=== PATIENT | female | born 1935 | race Caucasian/White ===

== ENCOUNTER 2017-11-14 19:12 | Emergency (ER) | payer MEDICARE ==
[2017-11-14] MEDS ORDERED: HYDRALAZINE HCL 20 MG/ML VIAL ONE (19:45)
[2017-11-14] MEDS ORDERED: HYDROCHLOROTHIAZIDE 25 MG TABLET ONE (19:46)
[2017-11-14 19:54] LABS: BASOPHILS % (AUTO) 1.3 % (0.0-5.0); EOSINOPHILS % (AUTO) 11.4 % (0.0-8.0); HEMATOCRIT 36.7 % (36-48); LYMPHOCYTES % (AUTO) 26.5 % (21.0-51.0); MEAN CORPUSCULAR HEMOGLOBIN 31.6 pg (27.0-33.0); MEAN CORPUSCULAR HGB CONC 33.6 g/dL (32.0-36.0); MONOCYTES % (AUTO) 13.3 % (3.0-13.0); NEUTROPHILS % (AUTO) 47.5 % (40.0-77.0); NUCLEATED RED BLOOD CELLS 0.1 % (0.0-0.19); PLATELET COUNT (AUTO) 301 K/uL (130-400); RED CELL DISTRIBUTION WIDTH 13.4 % (11.0-15.5); WHITE BLOOD COUNT (AUTO) 8.3 K/uL (4.8-10.8)
[2017-11-14 20:02] LABS: POTASSIUM 4.1 mmol/L (3.5-5.1)
[2017-11-14 20:07] LABS: ALBUMIN 3.6 g/dL (3.5-5.0); BILIRUBIN,TOTAL 0.4 mg/dL (0.2-1.0); TOTAL PROTEIN, SERUM 7.2 g/dL (6.0-8.3)
== END 2017-11-14 20:30 | disposition home or self-care (01) ==
LOC: EDH 19:12
DX: I10 Essential (primary) hypertension (principal); M19.90 Unspecified osteoarthritis, unspecified site; R00.1 Bradycardia, unspecified; Z88.2 Allergy status to sulfonamides; Z88.8 Allergy status to other drugs, medicaments and biological substances
CPT/HCPCS: 36415; 80053; 85025; 93005; 99285; J0360

== ENCOUNTER → 2017-11-23 | Outpatient (CLI) | payer MEDICARE | END | disposition home or self-care (01) | LOC: SHCH 15:52 | PROVIDERS: ATTEND Internal Medicine Cardiovascular Disease | DX: I10 Essential (primary) hypertension (principal); R00.1 Bradycardia, unspecified | CPT/HCPCS: 93306 ==

== ENCOUNTER → 2017-11-25 | Outpatient (CLI) | payer MEDICARE ==
[~2017-11-25] MED LIST: REGADENOSON 0.4 MG/5 ML PF SYG IVP SCH
== END | disposition home or self-care (01) ==
LOC: SHCH 08:42
PROVIDERS: ATTEND Internal Medicine Cardiovascular Disease
DX: Z01.818 Encounter for other preprocedural examination (principal); I10 Essential (primary) hypertension; R06.00 Dyspnea, unspecified; R55 Syncope and collapse
CPT/HCPCS: 78452; 93017; 96374; A9500 ×2; J2785

== ENCOUNTER 2018-04-21 05:38 | Day surgery (SDC) | payer MEDICARE ==
[2018-04-19 12:31] LABS: EOSINOPHILS % (AUTO) 4.2 % (0.0-8.0); HEMATOCRIT 39.7 % (36-48); LYMPHOCYTES % (AUTO) 17.5 % (21.0-51.0); MEAN CORPUSCULAR HGB CONC 33.2 g/dL (32.0-36.0); MEAN CORPUSCULAR VOLUME 90.4 fL (79-99); MONOCYTES % (AUTO) 9.3 % (3.0-13.0); PLATELET COUNT (AUTO) 318 K/uL (130-400); RED BLOOD CELL COUNT(AUTO) 4.39 MIL/uL (4.00-5.50); RED CELL DISTRIBUTION WIDTH 15.8 % (11.0-15.5); WHITE BLOOD COUNT (AUTO) 10.9 K/uL (4.8-10.8)
[2018-04-19 12:41] LABS: CREATININE 1.1 mg/dL (0.5-1.5); POTASSIUM 3.5 mmol/L (3.5-5.1)
[2018-04-19 12:46] LABS: INR 1.02 (0.85-1.15); PARTIAL THROMBOPLASTIN TIME 28.2 SEC (26.3-35.5); PROTHROMBIN TIME 10.7 SEC (9.6-11.6)
[2018-04-19 13:26] VITALS: BP 170/76
[2018-04-21] VITALS (10 sets, daily range): BP systolic 134–179; BP diastolic 66–83
[~2018-04-21] VITALS: Ht 165.1 cm; Wt 57.9 kg
[~2018-04-21 05:38] MED LIST changes: +ASPI-555 PO; +CELE200 PO; +CETI-101 PO; +CLON-465 PO; +HYDR25TA PO; +IRON150C5 PO; +LEVO75TA10 PO; +LOSA100T20 PO; +MONT10TA24 PO; -REGADENOSON 0.4 MG/5 ML PF SYG IVP SCH; +SIMV20TA6 PO; +TRIA10.8 NS; +TYL3 PO; +TYLENOL ER PO; +[UNRECOGNIZED DRUG - OTHER]
[2018-04-21] MEDS ORDERED: SODIUM CHLORIDE 0.9% 1000ML 1,000 ML IV ONE (06:17)
[2018-04-21] MEDS ORDERED: LIDOCAINE HCL 1% MDV 50ML VIAL ONE (08:04)
[2018-04-21] MEDS ORDERED: CEFAZOLIN SODIUM 1 GM VIAL ONE (08:04)
[2018-04-21] MEDS ORDERED: BUPIVACAINE/PF 0.25% 50ML VIAL IJ ONE (08:04)
[2018-04-21] MEDS ORDERED: FENTANYL CITRATE PF 50 MCG/1 ML 2ML VIAL ONE (08:47)
[2018-04-21] MEDS ORDERED: ACETAMINOPHEN 325 MG TAB PO PRN ×2 (09:15)
[2018-04-21] MEDS ORDERED: CEPH250 PO (09:45)
== END 2018-04-21 12:25 | disposition home or self-care (01) ==
LOC: DAH 05:38
PROVIDERS: ATTEND Internal Medicine Cardiovascular Disease
DX: Z45.09 Encounter for adjustment and management of other cardiac device (principal); E11.9 Type 2 diabetes mellitus without complications; I10 Essential (primary) hypertension; E78.5 Hyperlipidemia, unspecified; E03.9 Hypothyroidism, unspecified; Z98.890 Other specified postprocedural states; Z90.710 Acquired absence of both cervix and uterus; Z79.899 Other long term (current) drug therapy; Z82.49 Family history of ischemic heart disease and other diseases of the circulatory system; Z86.73 Personal history of transient ischemic attack (TIA), and cerebral infarction without residual deficits; Z88.8 Allergy status to other drugs, medicaments and biological substances; Z88.2 Allergy status to sulfonamides
CPT/HCPCS: 33282; 36415; 80048; 85025; 85610; 85730; 93005; A4606; C1764; J0690; J3010; J3490 ×2; J7030

== ENCOUNTER 2021-04-04 06:48 | Day surgery (SDC) | payer MEDICARE ==
[2021-04-01 15:54] LABS: HEMATOCRIT 40.9 % (36-48); LYMPHOCYTES % (AUTO) 21.3 % (21.0-51.0); MEAN CORPUSCULAR HEMOGLOBIN 30.2 pg (27.0-33.0); MEAN CORPUSCULAR HGB CONC 32.3 g/dL (32.0-36.0); MEAN CORPUSCULAR VOLUME 93.6 fL (79-99); MONOCYTES % (AUTO) 9.8 % (3.0-13.0); NEUTROPHILS % (AUTO) 60.5 % (40.0-77.0); PLATELET COUNT (AUTO) 316 K/uL (130-400); RED BLOOD CELL COUNT(AUTO) 4.37 MIL/uL (4.00-5.50); RED CELL DISTRIBUTION WIDTH 13.3 % (11.0-15.5); WHITE BLOOD COUNT (AUTO) 11.2 K/uL (4.8-10.8)
[2021-04-01 16:04] LABS: CREATININE 1.1 mg/dL (0.5-1.5); POTASSIUM 4.7 mmol/L (3.5-5.1)
[2021-04-03 15:40] VITALS: BP 190/68
[2021-04-04] VITALS (15 sets, daily range): BP systolic 99–159; BP diastolic 50–94
[~2021-04-04] VITALS: Ht 167.6 cm; Wt 60.3 kg
[~2021-04-04 06:48] MED LIST changes: +ACET-66 PO; +AMLO-257 PO; -ASPI-555 PO; +ASPI-556 PO; +BETA1TAB18 PO; -CETI-101 PO; -CLON-465 PO; +FAMO-136 PO; -HYDR25TA PO; -IRON150C5 PO; +LACT1TAB10 PO; +LORA10TA7 PO; -LOSA100T20 PO; +LOSA100T58 PO; -MONT10TA24 PO; +MONT10TA32 PO; +MULT-1258 PO; +SIMV-43 PO; -SIMV20TA6 PO; -TRIA10.8 NS; +TUME1CAP PO; -TYL3 PO; -TYLENOL ER PO; +UBID1CAP56 PO; -[UNRECOGNIZED DRUG - OTHER]
[2021-04-04] MEDS ORDERED: CEFTRIAXONE 1G VIAL IVP ONE (08:00)
[2021-04-04] MEDS ORDERED: IOHEXOL-350 50ML VIAL IV ONE (08:10)
[2021-04-04] MEDS ORDERED: PROPOFOL 10 MG/ML 20ML VIAL IV ONE (08:43)
[2021-04-04] MEDS ORDERED: LIDOCAINE PF 100MG/5ML (2%) SYRINGE 5ML ONE (08:43)
[2021-04-04] MEDS ORDERED: FENTANYL CITRATE PF 50 MCG/1 ML 2ML VIAL ONE (08:44)
[2021-04-04] MEDS ORDERED: LACTATED RINGERS 1000ML 1,000 ML IV ONE (08:56)
[2021-04-04] MEDS ORDERED: CEFTRIAXONE 1G VIAL ONE (09:07)
[2021-04-04] MEDS ORDERED: PHENAZOPYRIDINE HCL 200 MG TABLET ONE (11:14)
== END 2021-04-04 11:55 | disposition home or self-care (01) ==
LOC: DAH 06:48
PROVIDERS: ATTEND Urology
DX: N30.21 Other chronic cystitis with hematuria (principal); Z20.822 Contact with and (suspected) exposure to COVID-19; I10 Essential (primary) hypertension; K21.9 Gastro-esophageal reflux disease without esophagitis; E03.9 Hypothyroidism, unspecified; Z87.891 Personal history of nicotine dependence; Z88.8 Allergy status to other drugs, medicaments and biological substances; Z88.1 Allergy status to other antibiotic agents; Z98.890 Other specified postprocedural states; Z98.41 Cataract extraction status, right eye; Z98.42 Cataract extraction status, left eye; Z90.710 Acquired absence of both cervix and uterus; Z86.73 Personal history of transient ischemic attack (TIA), and cerebral infarction without residual deficits; Z79.899 Other long term (current) drug therapy
CPT/HCPCS: 36415; 52204; 74420; 80048; 85025; 87635; 88305; 93005; A4344; A4354; A4358; A6260; C1758; C9803; J0696; J2001; J2704; J3010; J7120 ×2; Q9967

== ENCOUNTER 2021-10-09 07:52 | Day surgery (SDC) | payer MEDICARE ==
[2021-10-07 12:14] VITALS: BP 157/83
[2021-10-07 16:08] LABS: BASOPHILS % (AUTO) 0.8 % (0.0-5.0); HEMATOCRIT 35.9 % (36-48); LYMPHOCYTES % (AUTO) 21.1 % (21.0-51.0); MEAN CORPUSCULAR HEMOGLOBIN 31.1 pg (27.0-33.0); MEAN CORPUSCULAR HGB CONC 31.8 g/dL (32.0-36.0); MEAN CORPUSCULAR VOLUME 97.8 fL (79-99); MONOCYTES % (AUTO) 11.3 % (3.0-13.0); NEUTROPHILS % (AUTO) 62.5 % (40.0-77.0); PLATELET COUNT (AUTO) 318 K/uL (130-400); RED BLOOD CELL COUNT(AUTO) 3.67 MIL/uL (4.00-5.50); RED CELL DISTRIBUTION WIDTH 14.6 % (11.0-15.5); WHITE BLOOD COUNT (AUTO) 10.6 K/uL (4.8-10.8)
[2021-10-07 16:17] LABS: POTASSIUM 3.9 mmol/L (3.5-5.1)
[2021-10-07 16:20] LABS: INR 1.05 (0.85-1.15); PROTHROMBIN TIME 11.4 SEC (9.6-11.6)
[2021-10-07 16:21] LABS: PARTIAL THROMBOPLASTIN TIME 28.2 SEC (26.3-35.5)
[~2021-10-09] VITALS: Ht 167.6 cm; Wt 56.2 kg
[~2021-10-09 07:52] MED LIST changes: +ASPI-1443 PO; -ASPI-556 PO; -LACT1TAB10 PO; +MONT-39 PO; -MONT10TA32 PO; +TRIA10.8 NS; -TUME1CAP PO; -UBID1CAP56 PO
[2021-10-09] MEDS ORDERED: 0.9%NACL 1000ML 1,000 ML IV SCH (08:00)
[2021-10-09 08:15] VITALS: BP 147/75
[2021-10-09] MEDS ORDERED: MIDAZOLAM HCL 1 MG/ML 2ML VIAL ONE (13:40)
[2021-10-09] MEDS ORDERED: SODIUM BICARB 50MEQ 50ML VIAL 0 ML ONE (13:40)
[2021-10-09] MEDS ORDERED: LIDOCAINE HCL 400MG/20ML VIAL ONE ×2 (13:41→13:56)
[2021-10-09] MEDS ORDERED: FENTANYL CITRATE PF 50 MCG/1 ML 2ML VIAL ONE (13:41)
[2021-10-09] MEDS ORDERED: SODIUM BICARB 50MEQ 50ML VIAL 50 ML ONE (13:56)
[2021-10-09 14:52] VITALS: BP 176/85
== END 2021-10-09 15:30 | disposition home or self-care (01) ==
LOC: DAH 07:52
PROVIDERS: ATTEND Internal Medicine Cardiovascular Disease
DX: Z45.09 Encounter for adjustment and management of other cardiac device (principal); G45.9 Transient cerebral ischemic attack, unspecified; E11.9 Type 2 diabetes mellitus without complications; I10 Essential (primary) hypertension; E78.5 Hyperlipidemia, unspecified; E03.9 Hypothyroidism, unspecified; Z90.49 Acquired absence of other specified parts of digestive tract; Z98.890 Other specified postprocedural states; Z90.710 Acquired absence of both cervix and uterus; Z98.42 Cataract extraction status, left eye; Z98.41 Cataract extraction status, right eye; Z82.49 Family history of ischemic heart disease and other diseases of the circulatory system; Z88.8 Allergy status to other drugs, medicaments and biological substances
CPT/HCPCS: 33286; 36415; 80048; 85025; 85610; 85730; 93005; A4215; A4216; A4221; A4222; A4223 ×3; A4606; A4663; J3490 ×2; J7030 ×2; J1644; J2250; J3010